=== PATIENT | female | born 1955 | race Caucasian/White ===

== ENCOUNTER 2018-06-15 19:28 | Emergency (ER) | payer MEDICARE, OTHER ==
[2018-06-15] MEDS ORDERED: Sodium Chloride 0.9% 10 ML Syringe FLUSH PRN (19:34)
[2018-06-15] MEDS ORDERED: methylPREDNISolone Sodium Succinate 125 MG/2 ML SDV IVPUSH ONE (19:34)
[2018-06-15] MEDS ORDERED: Famotidine 20 MG/2 ML SDV IVPUSH ONE (19:35)
[2018-06-15] MEDS ORDERED: diphenhydrAMINE 50 MG/ML SDV IVPUSH ONE (19:35)
[2018-06-15] MEDS ORDERED: Sodium Chloride 0.9% 1,000 ML IV ONE (19:36)
[2018-06-15] MEDS ORDERED: diphenhydrAMINE 50 MG/ML SDV ONE (19:40)
[2018-06-15] MEDS ORDERED: Take Home: predniSONE 20 MG, 2 Tab Pack PO ONE (20:31)
--- NOTE | 2018-06-15 20:32 | EDM.PDOC ---
ED HPI GENERAL MEDICAL PROBLEM - General Chief Complaint: Allergic Reaction Stated Complaint: Possible allergic reaction Time Seen by Provider: 06/15/18 19:33 Source of Information: Reports: Patient, Family, RN, RN Notes Reviewed History Limitations: Reports: No Limitations - History of Present Illness INITIAL COMMENTS - FREE TEXT/NARRATIVE: Patient presents to the ED at [facility] with a possible allergic reaction. She has known food allergies and think she may have eaten something she is allergic to. She states she was eating "moose tracks" ice cream when she started having audible wheezing. Patient does not know what she may have eaten. Onset: Today - Related Data Home Meds: Home Meds predniSONE [Prednisone] 20 mg PO BID 4 Days #8 tablet 06/15/18 [Rx] Past Medical History - Past Surgical History Musculoskeletal Surgical History: Reports: Other (See Below) Other Musculoskeletal Surgeries/Procedures:: Right menincus repair Social & Family History - Tobacco Use Smoking Status *Q: Never Smoker - Recreational Drug Use Recreational Drug Use: No ED ROS ALLERGIC REACTION - Review of Systems Review Of Systems: See Below Constitutional: Denies: Fever, Chills, Weakness HEENT: Reports: Other (orbital swelling of right upper eye lid) Respiratory: Reports: Wheezing. Denies: Shortness of Breath, Cough Cardiovascular: Denies: Chest Pain, Palpitations GI/Abdominal: Denies: Abdominal Pain, Nausea, Vomiting Skin: Reports: No Symptoms Neurological: Reports: No Symptoms ED EXAM GENERAL NO PERIP PULSE - Physical Exam Exam: See Below Exam Limited By: No Limitations General Appearance: Alert, No Apparent Distress Eye Exam: Bilateral Eye: EOMI, PERRL (orbital swelling of right upper eye lid) Throat/Mouth: Normal Inspection, Normal Oropharynx, No Airway Compromise Neck: Supple Respiratory/Chest: No Respiratory Distress, Lungs Clear, Normal Breath Sounds Cardiovascular: Normal Peripheral Pulses, Regular Rate, Rhythm GI/Abdominal: Normal Bowel Sounds, Soft, Non-Tender Neurological: Alert, Oriented Skin Exam: Warm, Dry, Intact, Normal Color Course - Vital Signs Last Recorded V/S: Last Vital Signs Temp 35.9 C 06/15/18 19:35 Pulse 60 06/15/18 20:41 Resp 16 06/15/18 20:41 BP 157/81 H 06/15/18 20:41 Pulse Ox 96 06/15/18 20:41 - Orders/Labs/Meds Orders: Active Orders 24 hr Category Date Time Status Sodium Chloride 0.9% [Saline Flush] Med 06/15/18 19:34 Active 10 ml FLUSH ASDIRECTED PRN Peripheral IV Insertion Adult [OM.PC] Routine Oth 06/15/18 19:34 Ordered Medication Orders Sodium Chloride (Saline Flush) 10 ml FLUSH ASDIRECTED PRN PRN Reason: Keep Vein Open Meds: Medications Generic Name Dose Route Start Last Admin Trade Name Freq PRN Reason Stop Dose Admin Sodium Chloride 10 ml 06/15/18 19:34 Saline Flush FLUSH ASDIRECTED PRN Keep Vein Open Discontinued Medications Generic Name Dose Route Start Last Admin Trade Name Freq PRN Reason Stop Dose Admin Diphenhydramine HCl 50 mg 06/15/18 19:35 06/15/18 19:43 Benadryl IVPUSH 06/15/18 19:36 50 mg ONETIME ONE Administration Diphenhydramine HCl Confirm 06/15/18 19:40 06/15/18 20:06 Benadryl Administered 06/15/18 19:41 Not Given Dose 50 mg .ROUTE .STK-MED ONE Famotidine 20 mg 06/15/18 19:35 06/15/18 19:56 Pepcid IVPUSH 06/15/18 19:36 20 mg ONETIME ONE Administration Sodium Chloride 1,000 mls @ 999 mls/hr 06/15/18 19:36 06/15/18 20:03 Normal Saline IV 06/15/18 20:36 999 mls/hr ONETIME ONE Administration Methylprednisolone Sodium Succinate 125 mg 06/15/18 19:34 06/15/18 19:55 Solu-Medrol IVPUSH 06/15/18 19:35 125 mg ONETIME ONE Administration Prednisone 1 packet 06/15/18 20:31 Take Home: Prednisone 20 Mg, 2 Tab Pack PO 06/15/18 20:32 ONETIME ONE Departure - Departure Time of Disposition: 20:32 Disposition: Home, Self-Care 01 Condition: Good Clinical Impression: Allergic reaction Qualifiers: Encounter type: initial encounter Qualified Code(s): T78.40XA - Allergy, unspecified, initial encounter - Discharge Information *PRESCRIPTION DRUG MONITORING PROGRAM REVIEWED*: Not Applicable *COPY OF PRESCRIPTION DRUG MONITORING REPORT IN PATIENT FELICIA: Not Applicable Prescriptions: predniSONE [Prednisone] 20 mg PO BID 4 Days #8 tablet Instructions: Anaphylactic Reaction, Adult, Allergies, Adult Referrals: PCP,Unknown [Primary Care Provider] - Forms: ED Department Discharge Additional Instructions: 1. Stay well hydrated and rest 2. Take Prednisone twice a day for 5 days 3. Also recommend Pepcid once a day for 5 days 4. See your Primary as symptoms warrant 5. Call us or return for any questions or concerns - Problem List Review Problem List Initiated/Reviewed/Updated: Yes - My Orders Last 24 Hours: My Active Orders 06/15/18 19:34 Sodium Chloride 0.9% [Saline Flush] 10 ml FLUSH ASDIRECTED PRN Peripheral IV Insertion Adult [OM.PC] Routine - Assessment/Plan Last 24 Hours: My Active Orders 06/15/18 19:34 Sodium Chloride 0.9% [Saline Flush] 10 ml FLUSH ASDIRECTED PRN Peripheral IV Insertion Adult [OM.PC] Routine Assessment:: Allergic reaction, etiology unknown Plan: Patient stable once medication were given. Patient is breathing normally and right upper eye lid swelling is stable. Voice is less muffled. Patient will be started on Prednisone and recommend pepcid once daily for 3 days. See PCP as symptoms warrant
== END 2018-06-15 21:15 | disposition home or self-care (01) ==
LOC: VM.ED 19:28
DX: T78.40XA Allergy, unspecified, initial encounter (principal)
CPT/HCPCS: 96365; 96375; 99283; A9270-GY; J1200; J2930; J3490; J7030

== ENCOUNTER 2025-05-16 11:31 | Emergency (ER) | payer MEDICARE, OTHER ==
[~2025-05-16 11:31] MED LIST: Sodium Chloride 0.9% 10 ML Syringe FLUSH PRN
[2025-05-16 11:49] LABS: BASOPHILS ABSOLUTE AUTO 0.0 x10^3/uL (0.0-0.2); BASOPHILS PERCENT AUTO 0.5 % (0.2-1.2); EOSINOPHILS ABSOLUTE AUTO 0.2 x10^3/uL (0.0-0.5); EOSINOPHILS PERCENT AUTO 2.6 % (0.0-4.0); IMMATURE GRAN ABSOLUTE AUTO 0.01 x10^3/uL (0.00-0.07); IMMATURE GRAN PERCENT AUTO 0.20 % (0.00-0.43); LYMPHOCYTES ABSOLUTE AUTO 2.7 x10^3/uL (1.0-4.8); LYMPHOCYTES PERCENT AUTO 47.1 % (25.0-50.0); MONOCYTES ABSOLUTE AUTO 0.6 x10^3/uL (0.0-0.8); MONOCYTES PERCENT AUTO 10.6 % (2.0-11.0); NEUTROPHILS ABSOLUTE AUTO 2.2 x10^3/uL (1.8-7.7); NEUTROPHILS PERCENT AUTO 39.0 % (50.0-80.0); PLATELET COUNT,PLT 224 x10^3/uL (130-400); RED BLOOD CELL COUNT 4.78 x10^6/uL (4.00-5.50); WHITE BLOOD CELL COUNT,WBC 5.8 x10^3/uL (4.0-10.0)
[2025-05-16 12:07] LABS: INR 1.0 (0.9-1.1)
[2025-05-16 12:12] LABS: BLOOD UREA NITROGEN,BUN 16 mg/dL (7-18); CARBON DIOXIDE,CO2 31 mmol/L (21-32); CHLORIDE,CL 101 mmol/L (98-107); CREATININE 1.0 mg/dL (0.55-1.02); GLUCOSE RANDOM 110 mg/dL (70-99); POTASSIUM,K 4.1 mmol/L (3.5-5.1); SODIUM,NA 140 mmol/L (136-145)
[2025-05-16 12:15] LABS: ESTIMATED GFR 60 mL/min (>=60)
[2025-05-16] MEDS ORDERED: Iopamidol 755 Mg/ML 100 ML Bottle IVPUSH ONE (13:19)
== END 2025-05-16 13:35 | disposition short-term general hospital (02) ==
LOC: VM.ED 11:31
DX: I63.9 Cerebral infarction, unspecified (principal); I10 Essential (primary) hypertension; E78.00 Pure hypercholesterolemia, unspecified; M19.90 Unspecified osteoarthritis, unspecified site; Z79.899 Other long term (current) drug therapy; Z79.51 Long term (current) use of inhaled steroids; Z88.8 Allergy status to other drugs, medicaments and biological substances; Z88.5 Allergy status to narcotic agent; Z88.1 Allergy status to other antibiotic agents; Z88.0 Allergy status to penicillin
CPT/HCPCS: 70450; 80048; 82947; 84484; 85025; 85610; 85730; 93005; 99285; J3101